=== PATIENT | male | born 1950 | race Caucasian/White ===

== ENCOUNTER 2022-10-14 10:30 | Outpatient (RCR) | payer MEDICARE, BC, SELFPAY ==
--- NOTE | 2022-08-06 10:46 | PT.OPEX ---
PT [place] Outpatient Eval PT [facility] Outpatient Eval Start: 08/05/22 10:30 Freq: Status: Active Protocol: Document 08/05/22 10:31 ORQUIDEA (Rec: 08/05/22 13:39 ORQUIDEA Laptop) E-signed By Sharron Chan PT Physical Therapy Outpatient Evaluation Insurance Information Insurance Name Medicare B,Blue Cross/Blue Shield Insurance Information/Comments MEDICARE [place] Medical Diagnosis LEFT OA M16.12 Treating Diagnosis DIFFICULTY AMB R26.2 ANTALGIC GAIT R26.0 STIFFNESS M25.652 LEFT HIP PAIN M25.552 Subjective Subjective I JUST WANT TO BE ABLE TO PUT MY SOCKS ON AND WALK AGAIN. I 'M JUST SO STIFF. PATIENT REPORTS MANY YEARS OF HIP DYSFUNCTION AND LIMITING WHAT HE CAN DO A RESULT. Pain Comments -05/10 Date of Last Physician Visit 04/16/22 Date of Surgery (If applicable) 08/12/22 Current Work Status Retired Occupation RETIRED INSURANCE VERIFICATION REPRESENTATIVE Precautions Treatment Precautions/Contraindications ANTERIOR HIP PRECAUTIONS Therapy Limitations/Systems Review Not Limited Objective Other/Pertinent Objective KNEE ROM Flexion: Extension: HIP ROM Flexion: 75 Extension: 20 -0 Internal Rotation: 10 External Rotation: 15 Abduction: 22 LLE MMT: Hip flexion: L 4 /5 Hip abduction: L 4/5 Hip extension: L 4/5 Knee flexion: L 5/5 Knee extension: L 5/5 SPECIAL TEST: N/A JOINT MOBILITY/PALPATION: HIP TENDERNESS AT GLUT MED TX: SUPINE ANKLE PUMP SUPINE QUAD SET SUPINE GLUT SQUEEZE SUPINE HAMSTRING SET STDG HIP ABD Assessment Assessment/Impression PATIENT IS A [address] TAM (ORTHO) AND DR. BULLOCK (PCP) HERE FOR PREOPERATIVE INSTRUCTIONS AND EDUCATION FOR HIS SCHEDULED LEFT MEG ON 08/12/22. 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 PATIENT LIVES WITH IS SPOUSE AUTUMN IN A ONE -STORY TOWN HOUSE WITH 4 STEPS TO ENTER THROUGH THE GARAGE AND RAILING ON BOTH SIDES. HIS BEDROOM AND BATHROOM ARE ALL ON THE MAIN LEVEL NOTING GRAB BARS FOR THE STEP IN SHOWER AND BY THE TOILET FOR ASSISTANCE. THEY DO NOT HAVE A TOILET RISER BUT DO HAVE A FWW. HE REPORTS 2-3 YR H/O WORSENING HIP PAIN (LEFT>RIGHT ) WITH RECENT EXACERBATION AND DIFFICULTY AMB FOR HOUSEHOLD ACTIVITIES. XRAYS REVEAL SEVERE OA BILATERALLY WITH OSTEOPHYTES NOTED.HE HAS LIMITED IR/ER NOTING LEFT 10/ 15 AND RIGHT 10/25 MAKING IT DIFFICULT FOR LOWER BODY DRESSING ESPECIALLY PUTTING SOCKS ON. HE IS PROVIDED EDUCATION ON FALL PREVENTION, POST OP WOUND MGMT, PAIN MGMT, AND PRECAUTIONS FOR THE ANTERIOR APPROACH WELL INITIATING HIS HEP TODAY. HE HAS HAD PHYSICAL THERAPY IN THE PAST (2YRS) AND THE EXERCISES ARE FAMILIAR BUT HAS NOT BEEN PERFORMING THE SPECIFIC POST EXERCISES. TODAY , HE TOLERATED THE PREOPERATIVE WELL WITH NOTED DIFFICULTY ALLOWING LEFT HIP TO BE IN HIP EXT TO ALLOW THE LEG TO LIE FLAT. WE ALSO DISCUSSED HIS RECENT VISIT WITH SAWMILL MOULDER OPERATOR TO GET CLEARED FOR THIS SURGERY WHERE AN ATRIAL FLUTTER WAS DISCOVERED AND HE BEGAN METOPROLOL LAST WEEK. HE EXPERIENCED AN IMMEDIATE DIARRHEA ALONG WITH 2 DAYS OF VERTIGO. HE COUNSELED WITH THE PHYSICIAN EVAPORATOR OPERATOR MOLASSES FOR HIS SAWMILL MOULDER OPERATOR WHO INSTRUCTED HIM TO STOP TAKING THE NEW MEDICATION UNTIL HE CAN F/U WITH HIS NORMAL SAWMILL MOULDER OPERATOR. HE WILL R/U AFTER THE SURGERY HE HAS A ECHOCARDIOGRAM SCHEDULE WELL AN APPT WITH A SPECIALIST. AT THIS TIME, WE DISCUSSED ANTICOAGULANT PRECAUTION FOR THE ELIQUIS HE WILL BEGIN POST OPERATIVELY WITH THE PATIENT VERBALIZED A GOOD UNDERSTANDING THROUGH TEACH BACK. BOTH THE HIS SPOUSE AND THE PATIENT VERBALIZED A GOOD UNDERSTANDING WITH THE INSTRUCTION AND EDUCATION PROVIDED TODAY WITH INSTRUCTIONS TO WRITE DOWN ANY ADDITIONAL QUESTION TO BE ASKED UPON DISCHARGE POST OPERATIVELY. Primary Functional Limitations WALKING BENDING STDG STAIRS BED MOBILITY ADL'S Plan of Care Rehabilitation Potential Good Physical Therapy Goals ST. PATIENT WILL BE COMPLIANT WITH HEP DAILY IN 1 WEEK. 2. PATIENT WILL VERBALIZE GOOD UNDERSTANDING OF HIS POST OP WOUND CARE MGMT IN 1WEEK Coordination/Communication With Referral Source Treatment Plan/Direct Interventions Gait Training,Joint Mobilization,Manual Therapy, Therapeutic Activities, Therapeutic Exercises Frequency/Duration 1-2X/WK FOR 10-12 WEEKS Patient Will Be Discharged From Therapy Completion of LTG(s), Independently Progressing Discharge Plan Comments DISCHARGE TO SELF WHEN GOALS MET Evaluation Billing Untimed Code Treatment Minutes 20 PT Eval No Charge No Complexity Low Certification Information Initial Certification Date 08/05/22 Ending Certification Date 10/28/22 Provider Signature Shows Agreement With POC & Medical Necessity Physician Signature & Date Requested Please Sign/Date Here Physician Comment/Change : Physician NPI Number #
== END 2022-10-28 15:18 | disposition home or self-care (01) ==
PROVIDERS: PCP Family Medicine; Visit Provider Orthopaedic Surgery Sports Medicine
DX: M16.12 Unilateral primary osteoarthritis, left hip (principal); Z96.642 Presence of left artificial hip joint; Z51.89 Encounter for other specified aftercare
CPT/HCPCS: 97110; 97116; 97140; 97161; 97164

== ENCOUNTER 2023-07-01 13:45 | Outpatient (RCR) | payer MEDICARE, BC, SELFPAY | END 2023-10-28 17:00 | disposition home or self-care (01) | PROVIDERS: PCP Family Medicine; Visit Provider Orthopaedic Surgery | DX: Z96.641 Presence of right artificial hip joint (principal); Z51.89 Encounter for other specified aftercare | CPT/HCPCS: 97110; 97140; 97161 ==